=== PATIENT | male | born 1975 | race Caucasian/White ===

== ENCOUNTER 2017-02-23 10:31 | Emergency (ER) | payer OTHER ==
[~2017-02-23] VITALS: Ht 172.7 cm; Wt 88.5 kg
[~2017-02-23 10:31] MED LIST: IBUP1TAB7 PO
== END 2017-02-23 12:50 | disposition left against medical advice (07) ==
LOC: NED 10:31
DX: Z04.1 Encounter for examination and observation following transport accident (principal)
CPT/HCPCS: 99281

== ENCOUNTER 2017-08-08 11:52 | Emergency (ER) | payer SELFPAY ==
[~2017-08-08] VITALS: Ht 172.7 cm; Wt 95.0 kg
[2017-08-08 11:57] VITALS: BP 133/79; PULSE 100; RESP 20; TEMP 98.2; O2SAT 95
--- NOTE | 2017-08-08 13:21 | RADRPT ---
EXAM DATE: 08/08/2017 1:15 PM EDT AGE/SEX: 42 years / Male INDICATIONS: Left ankle swelling and burning pain denies injury CLINICAL DATA: This is the patient's initial encounter. Patient reports that signs and symptoms have been present for 2 days and indicates a pain score of 6/10. MEDICAL/SURGICAL HISTORY: . degenerative disc disease None. COMPARISON: No prior exams available for comparison. FINDINGS: Bony structures are intact and in normal alignment. Joints are intact without dislocation or signifi cant arthropathy. Osseous density is normal. Soft tissues are prominent. No radiopaque foreign bod ies seen. CONCLUSION: Soft tissue swelling without fracture. Electronically signed by: Devan Rajan MD 08/08/2017 1:20 PM EDT
[2017-08-08] MEDS ORDERED: SODIUM CHLORIDE 0.9% FLUSH 10 ML FLUSH IV FLUSH PRN (13:45)
[2017-08-08 13:53] VITALS: O2SAT 97
--- NOTE | 2017-08-08 13:54 | PD ---
HPI Chief Complaint: Pain: Acute or Chronic Time Seen by Provider: 13:36 Travel History International Travel<30 days: No Contact w/Intl Traveler<30days: No Traveled to known affect area: No History of Present Illness HPI 42-year-old male presents emergency department with pain and swelling to the left lower extremity over the past several days. Patient has no history of injury. Patient states the pain started in the lower extremity is radiated up into the thigh. Patient has no pain in his back or hip. Patient states pain is about a 7 out of 10. It is worse with ambulation. Swelling is worsening over the past 2 days. He denies numbness or tingling. He denies weakness. He has no known drug allergies. PFSH Past Medical History Arthritis: No Blood Disorders: No Cancer: No Cardiovascular Problems: No Cerebrovascular Accident: No Diminished Hearing: No Endocrine: No Gastrointestinal Disorders: No Glaucoma: No Genitourinary: No Headaches: Yes Immune Disorder: No Musculoskeletal: Yes Neurologic: Yes Psychiatric: No Reproductive: No Respiratory: No Migraines: No Seizures: No Tetanus Vaccination: > 5 Years Past Surgical History AICD: No Arteriovenous Shunt: No Insulin Pump: No Joint Replacement: No Pacemaker: No Other Surgery: Yes (BACK SURGERY 2006) Social History Alcohol Use: Yes (12 PACK OF BEER EVERY OTHER WEEKEND/LAST INTAKE 2 DAYS AGO) Tobacco Use: Yes (/SINCE AGE 18) Substance Use: Yes (MARIJUANA 6 JOINTS PER MONTH/LAST USED 2 WKS AGO) Allergies-Medications (Allergen,Severity, Reaction): Coded Allergies: No Known Allergies (Verified , 12/29/15) Reported Meds & Prescriptions Reported Meds & Active Scripts Active Ibuprofen 800 Mg Tab 800 Mg PO Q6HR PRN Review of Systems Except as stated in HPI: all other systems reviewed are Neg General / Constitutional: No: Fever Eyes: No: Visual changes HENT: No: Headaches Cardiovascular: No: Chest Pain or Discomfort Respiratory: No: Shortness of Breath Gastrointestinal: No: Abdominal Pain Genitourinary: No: Dysuria Musculoskeletal: Positive: Myalgias, Arthralgias, Limited ROM, Edema, Pain Skin: No Rash Neurologic: No: Weakness Psychiatric: No: Depression Endocrine: No: Polydipsia Hematologic/Lymphatic: No: Easy Bruising Physical Exam Narrative GENERAL: Patient appears in no obvious distress. SKIN: Warm and dry. Normal color. Normal turgor. No sign of rash. No signs of cellulitis. HEAD: Atraumatic. Normocephalic. EYES: Pupils equal and round. No scleral icterus. No injection or drainage. ENT: No nasal bleeding or discharge. Mucous membranes pink and moist. Pharynx is clear. Airways patent NECK: Trachea midline. Supple and nontender. CARDIOVASCULAR: Regular rate and rhythm. RESPIRATORY: No accessory muscle use. Clear to auscultation. Breath sounds equal bilaterally. MUSCULOSKELETAL: Extremities without clubbing, cyanosis, or 1-2+ nonpitting edema on the left. No obvious deformities. No specific point tenderness, however the patient has generalized tenderness to the ankle, and calf and posterior thigh. Neurovascular exam is otherwise unremarkable. NEUROLOGICAL: Awake and alert. No obvious cranial nerve deficits. Motor grossly within normal limits. Five out of 5 muscle strength in the arms and legs. Normal speech. PSYCHIATRIC: Appropriate mood and affect; insight and judgment normal. Data Data Last Documented VS Vital Signs Date Time Temp Pulse Resp B/P (MAP) Pulse Ox O2 Delivery O2 Flow Rate FiO2 08/08/17 13:53 97 Nasal Cannula 2.00 08/08/17 13:53 18 08/08/17 11:57 98.2 100 133/79 (97) Orders Orders Ankle, Complete ([id number]) (08/08/17 ) Basic Metabolic Panel (Bmp) (08/08/17 13:39) Complete Blood Count With Diff (08/08/17 13:39) Prothrombin Time / Inr (Pt) (08/08/17 13:39) Act Partial Throm Time (Ptt) (08/08/17 13:39) Iv Access Insert/Monitor (08/08/17 13:39) Ecg Monitoring (08/08/17 13:39) Oximetry (08/08/17 13:39) Sodium Chloride 0.9% Flush (Ns Flush) (08/08/17 13:45) Us Leg Venous Doppler (08/08/17 13:39) Ed Discharge Order (08/08/17 16:03) Labs Laboratory Tests Test 08/08/17 13:54 White Blood Count 7.8 TH/MM3 Red Blood Count 4.54 MIL/MM3 Hemoglobin 13.6 GM/DL Hematocrit 40.2 % Mean Corpuscular Volume 88.6 FL Mean Corpuscular Hemoglobin 30.0 PG Mean Corpuscular Hemoglobin Concent 33.9 % Red Cell Distribution Width 13.7 % Platelet Count 277 TH/MM3 Mean Platelet Volume 7.0 FL Neutrophils (%) (Auto) 55.8 % Lymphocytes (%) (Auto) 31.7 % Monocytes (%) (Auto) 8.6 % Eosinophils (%) (Auto) 3.2 % Basophils (%) (Auto) 0.7 % Neutrophils # (Auto) 4.4 TH/MM3 Lymphocytes # (Auto) 2.5 TH/MM3 Monocytes # (Auto) 0.7 TH/MM3 Eosinophils # (Auto) 0.3 TH/MM3 Basophils # (Auto) 0.1 TH/MM3 CBC Comment DIFF FINAL Differential Comment Prothrombin Time 10.2 SEC Prothromb Time International Ratio 1.0 RATIO Activated Partial Thromboplast Time 30.2 SEC Blood Urea Nitrogen 9 MG/DL Creatinine 0.87 MG/DL Random Glucose 86 MG/DL Calcium Level 8.5 MG/DL Sodium Level 139 MEQ/L Potassium Level 4.0 MEQ/L Chloride Level 106 MEQ/L Carbon Dioxide Level 27.4 MEQ/L Anion Gap 6 MEQ/L Estimat Glomerular Filtration Rate 97 ML/MIN [facility] Medical Decision Making Medical Screen Exam Complete: Yes Emergency Medical Condition: Yes Differential Diagnosis Left leg strain. Ankle sprain. Fracture. DVT. Narrative Course Patient appears medically stable at time of exam X-ray of the ankle shows no acute process other than localized soft tissue swelling. Due to the patient's pain in the calf and thigh I need to rule out a DVT, therefore labs were ordered including CBC, BMP, and coagulation studies. IV access is obtained, and venous ultrasound of the left lower extremity is ordered. Labs are unremarkable. Ultrasound left lower extremity shows no sign of DVT. There is an incidental popliteal cyst. Patient will be treated with ibuprofen 800 mg up to 3 times daily with food #60 Patient should stay off his feet for several days and elevate. Patient can use heat followed by ice Patient to follow-up with his primary care physician as needed. Diagnosis Primary Impression: Pain of left lower extremity Patient Instructions: General Instructions, Osteoarthritis (ED) Med/Other Pt SpecificInfo: Prescription(s) given Scripts Ibuprofen (Ibuprofen) 800 Mg Tab 800 MG PO Q8H Y for Pain/Inflammation, #60 TAB 0 Refills Prov: Savita Walker MD 08/08/17 Disposition: 01 DISCHARGE HOME Condition: Stable Brown Garcia Aug 08, 2017 13:54
[2017-08-08 14:11] LABS: AUTOMATED NEUTROPHIL # 4.4 TH/MM3 (1.8-7.7); BASOPHIL # 0.1 TH/MM3 (0-0.2); BASOPHIL % 0.7 % (0.0-2.0); EOSINOPHIL # 0.3 TH/MM3 (0-0.4); EOSINOPHIL % 3.2 % (0.0-4.0); HEMATOCRIT 40.2 % (39.0-51.0); HEMOGLOBIN 13.6 GM/DL (13.0-17.0); LYMPH % 31.7 % (9.0-44.0); LYMPHOCYTE # 2.5 TH/MM3 (1.0-4.8); MEAN CELL VOLUME 88.6 FL (80.0-100.0); MEAN CORPUSCULAR HGB CONC 33.9 % (32.0-36.0); MONO % 8.6 % (0.0-8.0); MONOCYTE # 0.7 TH/MM3 (0-0.9); NEUT % 55.8 % (16.0-70.0); PLATELET COUNT 277 TH/MM3 (150-450); RED BLOOD COUNT 4.54 MIL/MM3 (4.50-5.90); RED CELL DISTRIBUTION WIDTH 13.7 % (11.6-17.2); WHITE BLOOD COUNT 7.8 TH/MM3 (4.0-11.0)
[2017-08-08 14:21] LABS: PROTHROMBIN TIME - PATIENT 10.2 SEC (9.8-11.6)
[2017-08-08 14:27] LABS: BICARBONATE 27.4 MEQ/L (21.0-32.0); CALCIUM 8.5 MG/DL (8.5-10.1); CREATININE 0.87 MG/DL (0.60-1.30)
--- NOTE | 2017-08-08 15:32 | RADRPT ---
EXAM DATE: 08/08/2017 3:25 PM EDT AGE/SEX: 42 years / Male INDICATIONS: Left leg swelling. CLINICAL DATA: This is the patient's initial encounter. Patient reports that signs and symptoms have been present for 1 day and indicates a pain score of 5/10. MEDICAL/SURGICAL HISTORY: . Left leg swelling. Blurred vision. Headaches. . Back surgery. COMPARISON: No prior exams available for comparison. TECHNIQUE: Venous ultrasound of both lower extremities was performed from the inguinal ligament to t he proximal calf. Real-time, color Doppler and spectral tracing, compression and augmentation techni ques were used. FINDINGS: Negative for deep venous thrombosis in the left femoral, popliteal, posterior tibial and p eroneal veins. Normal compression augmentation. Popliteal cyst measures 4.3 x 2.3 x 1.3 cm. CONCLUSION: 1. Negative for deep venous thrombosis. Incidental popliteal cyst. Electronically signed by: Humberto Burgos MD 08/08/2017 3:30 PM EDT
[2017-08-08] MEDS ORDERED: IBUP1TAB7 PO (16:04)
== END 2017-08-08 16:20 | disposition home or self-care (01) ==
LOC: NEPD 11:52
DX: M79.605 Pain in left leg (principal); R60.0 Localized edema; Z72.0 Tobacco use; Z87.39 Personal history of other diseases of the musculoskeletal system and connective tissue; Z86.69 Personal history of other diseases of the nervous system and sense organs
CPT/HCPCS: 73610; 80048; 85025; 85610; 85730; 93971